=== PATIENT | female | born 1965 | race Caucasian/White ===

== ENCOUNTER 2018-01-12 09:19 | Emergency (ER) | payer MEDICAID, OTHER | END 2018-01-12 14:17 | disposition home or self-care (01) | LOC: FTE 09:19 | DX: R05 Cough (principal) | CPT/HCPCS: 71045; 99284-25 ==

== ENCOUNTER 2018-01-18 08:11 | Emergency (ER) | payer MEDICAID | END 2018-01-18 11:37 | disposition home or self-care (01) | LOC: FTE 08:11 | DX: R05 Cough (principal) | CPT/HCPCS: 71045; 99284-25 ==